=== PATIENT | male | born 1995 | race Two or more races ===

== ENCOUNTER 2020-04-30 20:06 | Emergency (ER) | payer BC ==
[~2020-04-30] VITALS: Ht 195.6 cm; Wt 83.9 kg
[2020-04-30 20:18] VITALS: BP 122/72
--- NOTE | 2020-04-30 20:18 | Emergency Room Report ---
History of Present Illness General Chief Complaint: Upper Extremity Injury Source: Patient Present Illness HPI Disclaimer: Please note that this report is being documented using [employer] technology. This can lead to erroneous entry secondary to incorrect interpretation by the dictating instrument. HPI: 24-year-old [id number] male presents for evaluation of hand injury. The patient was in a [employer] match rolled over and had the opponent fall onto his right hand. He felt a pop over the MCP J's of the second and third digits. Has difficulty flexion due to pain. Able to extend fully. Also felt a pop in his shoulders and right elbow but states he has no pain in those areas now and full range of motion. He adds that he sprained an AC joint of the left shoulder 2 weeks ago and this is unchanged. Denies head injury or loss conscious. No prior history of injury to the right hand. PMH: Reviewed PSH: Reviewed Allergies: Reviewed Social Hx: Reviewed Allergies: Coded Allergies: No Known Allergies (Unverified , 04/30/20) Review of Systems All Other Systems: negative except mentioned in HPI Physical Exam General: Awake and alert, no acute distress HEENT: NC/AT. EOMI. Resp: Normal work of breathing Skin: Intact. No abrasions, laceration or rash over the exposed skin MSK: Normal tone and bulk. Moving all extremities. No obvious deformity. Tenderness palpation over the MCP J of the second and third digits on the right hand. Limited flexion though full extension. Other digits are atraumatic and no tenderness. No swelling or skin breakdown. Full range of motion in the wrists, elbows, shoulders. Neuro: Awake and alert. Mentating appropriately Procedures Splinting Splinting : Consent: Verbal Hand-Made Type: plaster Splint: Short arm Pre-Proc Neuro Vasc Exam: normal Post-Proc Neuro Vasc Exam: normal Patient Tolerated: Well Complications: None Medical Decision Making Diagnostic Impression: Primary Impression: Metacarpal bone fracture ER Course 24-year-old male presents with a right hand injury. X-ray shows fracture of the shaft second metacarpal with slight displacement. Placed in a short arm splint. Imaging provided. He will take these to PMD for referral to orthopedic surgeon in the [place] area where he lives. Other X-Ray Diagnostic Results Other X-Ray Diagnostic Results : X-Ray ordered: Right hand # of Views/Limited Vs Complete: 3 View Indication: Pain EP Interpretation: Yes Interpretation: no dislocation, no soft tissue swelling, other - Midshaft fracture of the second metacarpal Impression: Other - Midshaft fracture of the second metacarpal Electronically Signed by: Electronically signed by Dr. Ivan Marcial MD Disposition: HOME, SELF-CARE Condition: Stable Scripts Hydrocodone/Acetaminophen 5-325* (HYDROCODONE/ACETAMINOPHEN 5-325*) 1 Each Tablet 1 TAB ORAL Q6H PRN for For Pain, #10 TAB 0 Refills Prov: Ivan Marcial MD 04/30/20 Ivan Marcial MD Apr 30, 2020 20:18
--- NOTE | 2020-04-30 20:20 | NUR ---
ED Nurse Note: pt came from home complaints of possible injury during sports says he heard elbow, shoulder, and finger make a popping noise, pt is ambulatory, AOx4, vitals stable, no health hx
[2020-04-30] MEDS ORDERED: HYDROCODON-ACE1 EA15 ORAL (20:41)
--- NOTE | 2020-04-30 20:48 | Diagnostic Imaging Report ---
EXAM: XR Right Hand Complete, 3 or More Views CLINICAL HISTORY: INJ TECHNIQUE: Frontal, lateral and oblique views of the right hand. COMPARISON: No relevant prior studies available. FINDINGS: Bones/joints: Acute mildly displaced fracture of the shaft of the second metacarpal. Soft tissues: No significant abnormality. No radiopaque foreign body. IMPRESSION: Acute mildly displaced fracture of the shaft of the second metacarpal.
[2020-04-30] MEDS ORDERED: HYDROcodone/Acetamin 5/325 tab ORAL ONE (21:15)
== END 2020-04-30 21:42 | disposition home or self-care (01) ==
LOC: EMR 20:53
DX: S62.320A Displaced fracture of shaft of second metacarpal bone, right hand, initial encounter for closed fracture (principal); W50.0XXA Accidental hit or strike by another person, initial encounter; Y93.89 Activity, other specified; Y92.9 Unspecified place or not applicable
CPT/HCPCS: 29125; 99283